=== PATIENT | male | born 1980 | race Caucasian/White ===

== ENCOUNTER 2020-04-29 10:41 | Emergency (ER) | payer SELFPAY ==
[2020-04-30 15:09] LABS: SARS-CoV-2 MS2 Positive; SARS-CoV-2 N Gene Negative; SARS-CoV-2 S Gene Negative; SARS-CoV-2 by NAA Not Detected (NotDetected); SARS-CoV-2 orf1ab Negative
== END 2020-04-29 11:10 | disposition home or self-care (01) ==
LOC: MADERS 10:41
DX: J06.9 Acute upper respiratory infection, unspecified (principal); Z20.828 Contact with and (suspected) exposure to other viral communicable diseases; F17.210 Nicotine dependence, cigarettes, uncomplicated
CPT/HCPCS: 87635; 87804; 99283; U0003

== ENCOUNTER 2023-06-15 10:19 | Emergency (ER) | payer SELFPAY ==
[2023-06-15] MEDS ORDERED: Lidocaine 1% PF 5 ML VIAL ONE (10:49)
== END 2023-06-15 11:12 | disposition home or self-care (01) ==
LOC: MADERS 10:19
DX: S61.012A Laceration without foreign body of left thumb without damage to nail, initial encounter (principal); F17.210 Nicotine dependence, cigarettes, uncomplicated; W26.8XXA Contact with other sharp object(s), not elsewhere classified, initial encounter
CPT/HCPCS: 12032